=== PATIENT | male | born 1980 | race Caucasian/White ===

== ENCOUNTER 2018-10-25 08:28 | Emergency (ER) | payer SELFPAY ==
--- NOTE | 2018-10-25 08:57 | EDM.PDOC ---
<Reymundo Viramontes - Last Filed: 10/25/18 09:55> ED HPI GENERAL MEDICAL PROBLEM - General Chief Complaint: Chest Pain Stated Complaint: CHEST PAIN Time Seen by Provider: 10/25/18 08:55 - History of Present Illness INITIAL COMMENTS - FREE TEXT/NARRATIVE: Previously healthy 34 year old is seen in ER for localized chest pain in the left lateral chest that began last night while sleeping around 0300 which lasted until 0600. The pain is currently 2/10, and described as a "pressure", he states the pain has decreased significantly from when it initially began. He admits that he felt that his heart was "racing" at initial onset. He denies any radiation of pain or shortness of breath. He denies any recent trauma, heavy lifting, or overactivity of the upper extremities. He further denies any fever, chills, nausea, and vomiting. The patient does not smoke. Pt does state he drives quite a bit for work. Onset: Today Onset Date: 10/25/18 Onset Time: 03:00 Duration: Hour(s): (3 hours), Improving Location: Reports: Chest (Lateral chest wall approximately rip 3-5) Quality: Reports: Pressure Severity: Mild Improves with: Reports: None Worsens with: Reports: None (Palpation) Associated Symptoms: Reports: No Other Symptoms - Related Data Allergies Allergy/AdvReac Type Severity Reaction Status Date / Time No Known Allergies Allergy Verified 10/25/18 08:51 Home Meds: Home Meds . [No Known Home Meds] 01/06/14 [History] ED ROS GENERAL - Review of Systems Review Of Systems: See Below Constitutional: Reports: No Symptoms. Denies: Fever, Chills HEENT: Reports: No Symptoms Respiratory: Reports: No Symptoms. Denies: Shortness of Breath, Wheezing, Pleuritic Chest Pain, Cough, Sputum, Hemoptysis Cardiovascular: Reports: No Symptoms, Chest Pain (see hpi), Palpitations (see hpi). Denies: Dyspnea on Exertion, Edema, Lightheadedness, Orthopnea, Syncope Endocrine: Reports: No Symptoms GI/Abdominal: Reports: No Symptoms. Denies: Abdominal Pain, Black Stool, Diarrhea, Nausea, Vomiting : Reports: No Symptoms Musculoskeletal: Reports: No Symptoms. Denies: Neck Pain, Shoulder Pain, Arm Pain, Back Pain, Hand Pain, Joint Pain, Muscle Stiffness Skin: Reports: No Symptoms Neurological: Reports: No Symptoms. Denies: Dizziness, Headache, Syncope, Tingling Psychiatric: Reports: No Symptoms Hematologic/Lymphatic: Reports: No Symptoms Immunologic: Reports: No Symptoms ED EXAM, GENERAL - Physical Exam Exam: See Below Exam Limited By: No Limitations General Appearance: Alert, No Apparent Distress Eye Exam: Bilateral Eye: EOMI, PERRL Ears: Normal External Exam, Normal Canal, Hearing Grossly Normal Ear Exam: Bilateral Ear: Auricle Normal, Canal Normal, TM normal Nose: Normal Inspection, Normal Mucosa, No Blood Throat/Mouth: Normal Inspection, Normal Lips, Normal Teeth, Normal Gums, Normal Oropharynx, Normal Voice, No Airway Compromise Head: Atraumatic, Normocephalic Neck: Normal Inspection, Supple, Non-Tender, Full Range of Motion Respiratory/Chest: No Respiratory Distress, Lungs Clear, Normal Breath Sounds, No Accessory Muscle Use, Chest Non-Tender, Other (Pain with palpation of the apex region of the chest with musclular knots. No pain to palpation of the Costosternal or costovertebral joints.) Cardiovascular: Normal Peripheral Pulses, Regular Rate, Rhythm, No Edema, No Gallop, No JVD, No Murmur, No Rub Peripheral Pulses: 2+: Radial (L), Radial (R), Dorsalis Pedis (L), Dorsalis Pedis (R) GI/Abdominal: Normal Bowel Sounds, Soft, Non-Tender, No Organomegaly, No Distention, No Abnormal Bruit, No Mass (Male) Exam: Deferred Rectal (Males) Exam: Deferred Back Exam: Normal Inspection, Full Range of Motion. No: Decreased Range of Motion, Paraspinal Tenderness Extremities: Normal Inspection, Normal Range of Motion, Non-Tender, No Pedal Edema, Normal Capillary Refill, Pedal Edema. No: Joint Swelling, Leg Pain, Limited Range of Motion (of the left arm.) Neurological: Alert, Oriented, CN II-XII Intact, Normal Cognition, Normal Gait, Normal Reflexes, No Motor/Sensory Deficits Psychiatric: Normal Affect, Normal Mood Skin Exam: Warm, Dry, Intact, Normal Color, No Rash Lymphatic: No Adenopathy Course - Vital Signs Last Recorded V/S: Last Vital Signs Temp 36.4 C 10/25/18 08:48 Pulse 64 10/25/18 08:48 Resp 11 L 10/25/18 08:48 BP 127/87 10/25/18 08:48 Pulse Ox 96 10/25/18 08:48 - Orders/Labs/Meds Orders: Active Orders 24 hr Category Date Time Status EKG Documentation Completion [RC] STAT Care 10/25/18 08:55 Active Sodium Chloride 0.9% [Normal Saline] 1,000 ml Med 10/25/18 09:00 Active IV ASDIRECTED Medication Orders Sodium Chloride (Normal Saline) 1,000 mls @ 150 mls/hr IV ASDIRECTED SHAHRAM Last Admin: 10/25/18 09:42 Dose: 150 mls/hr Labs: Laboratory Tests 10/25/18 10/25/18 10/25/18 Range/Units 09:40 09:40 09:40 WBC 8.46 (4.23-9.07) K/mm3 RBC 5.67 (4.63-6.08) M/mm3 Hgb 17.2 (13.7-17.5) gm/L Hct 51.4 H (40.1-51.0) % MCV 90.7 (79.0-92.2) fl MCH 30.3 (25.7-32.2) pg MCHC 33.5 (32.2-35.5) g/dl RDW Std Deviation 47.5 H (35.1-43.9) fL Plt Count 225 (163-337) K/mm3 MPV 10.7 (9.4-12.3) fl Neutrophils % (Manual) 56 (40-60) % Band Neutrophils % 0 (0-10) % Lymphocytes % (Manual) 39 (20-40) % Atypical Lymphs % 0 % Monocytes % (Manual) 2 (2-10) % Eosinophils % (Manual) 3 (0.8-7.0) % Basophils % (Manual) 0 L (0.2-1.2) Platelet Estimate Adequate RBC Morph Comment Normal PT 11.0 (9.5-12.1) SECONDS INR 1.01 D-Dimer, Quantitative (0.19-0.50) mg/L Sodium 140 (136-145) mEq/L Potassium 4.5 (3.5-5.1) mEq/L Chloride 105 (98-107) mEq/L Carbon Dioxide 26 (21-32) mEq/L Anion Gap 13.5 (5-15) BUN 21 H (7-18) mg/dL Creatinine 1.1 (0.7-1.3) mg/dL Est Cr Clr Drug Dosing 108.83 mL/min Estimated GFR (MDRD) > 60 (>60) mL/min BUN/Creatinine Ratio 19.1 H (14-18) Glucose 107 H (74-106) mg/dL Calcium 9.2 (8.5-10.1) mg/dL Total Bilirubin 0.5 (0.2-1.0) mg/dL AST 22 (15-37) U/L ALT 43 (16-63) U/L Alkaline Phosphatase 67 (46-116) U/L CK-MB (CK-2) 1.1 (0-3.6) ng/ml Troponin I < 0.017 (0.00-0.056) ng/mL C-Reactive Protein < 0.2 (<1.0) mg/dL Total Protein 7.8 (6.4-8.2) g/dl Albumin 4.0 (3.4-5.0) g/dl Globulin 3.8 gm/dL Albumin/Globulin Ratio 1.1 (1-2) 10/25/18 Range/Units 09:40 WBC (4.23-9.07) K/mm3 RBC (4.63-6.08) M/mm3 Hgb (13.7-17.5) gm/L Hct (40.1-51.0) % MCV (79.0-92.2) fl MCH (25.7-32.2) pg MCHC (32.2-35.5) g/dl RDW Std Deviation (35.1-43.9) fL Plt Count (163-337) K/mm3 MPV (9.4-12.3) fl Neutrophils % (Manual) (40-60) % Band Neutrophils % (0-10) % Lymphocytes % (Manual) (20-40) % Atypical Lymphs % % Monocytes % (Manual) (2-10) % Eosinophils % (Manual) (0.8-7.0) % Basophils % (Manual) (0.2-1.2) Platelet Estimate RBC Morph Comment PT (9.5-12.1) SECONDS INR D-Dimer, Quantitative < 0.19 L (0.19-0.50) mg/L Sodium (136-145) mEq/L Potassium (3.5-5.1) mEq/L Chloride (98-107) mEq/L Carbon Dioxide (21-32) mEq/L Anion Gap (5-15) BUN (7-18) mg/dL Creatinine (0.7-1.3) mg/dL Est Cr Clr Drug Dosing mL/min Estimated GFR (MDRD) (>60) mL/min BUN/Creatinine Ratio (14-18) Glucose (74-106) mg/dL Calcium (8.5-10.1) mg/dL Total Bilirubin (0.2-1.0) mg/dL AST (15-37) U/L ALT (16-63) U/L Alkaline Phosphatase (46-116) U/L CK-MB (CK-2) (0-3.6) ng/ml Troponin I (0.00-0.056) ng/mL C-Reactive Protein (<1.0) mg/dL Total Protein (6.4-8.2) g/dl Albumin (3.4-5.0) g/dl Globulin gm/dL Albumin/Globulin Ratio (1-2) Meds: Medications Generic Name Dose Route Start Last Admin Trade Name Freq PRN Reason Stop Dose Admin Sodium Chloride 1,000 mls @ 150 mls/hr 10/25/18 09:00 10/25/18 09:42 Normal Saline IV 150 mls/hr ASDIRECTED SHAHRAM Administration Departure - Departure Disposition: Home, Self-Care 01 Clinical Impression: Non-cardiac chest pain, Chest wall pain Instructions: Nonspecific Chest Pain Referrals: PCP,None [Primary Care Provider] - Forms: ED Department Discharge, ED Return to Work/School Form Additional Instructions: Complete workup in the ED for left precordial chest pain was completed. There was no evidence of heart related illness identified. Iliac markers are normal. No evidence of blood clot in the lungs. Chest x-ray is clear with no signs of active infection. It appears that chest pain was likely chest wall in origin which means deep muscles in between the ribs went into spasm or possibly early viral infection in the chest wall around the ribs. Time will tell if it's viral you'll get the chest pain back again off and on for the next several days. Treatment is Motrin 600 mg every 6 hours as needed for chest wall pain. At this time there are no restrictions you may resume full activity and work as per normal. - My Orders Last 24 Hours: My Active Orders 10/25/18 08:55 EKG Documentation Completion [RC] STAT 10/25/18 09:00 Sodium Chloride 0.9% [Normal Saline] 1,000 ml IV ASDIRECTED - Assessment/Plan Last 24 Hours: My Active Orders 10/25/18 08:55 EKG Documentation Completion [RC] STAT 10/25/18 09:00 Sodium Chloride 0.9% [Normal Saline] 1,000 ml IV ASDIRECTED <Zafar Tinoco - Last Filed: 10/25/18 11:42> ED HPI GENERAL MEDICAL PROBLEM - General Source of Information: Reports: Patient History Limitations: Reports: No Limitations Left Chest Pain Score (Numeric/FACES): 2 Course - Orders/Labs/Meds Orders: Active Orders 24 hr Category Date Time Status EKG Documentation Completion [RC] STAT Care 10/25/18 08:55 Active Sodium Chloride 0.9% [Normal Saline] 1,000 ml Med 10/25/18 09:00 Active IV ASDIRECTED Medication Orders Sodium Chloride (Normal Saline) 1,000 mls @ 150 mls/hr IV ASDIRECTED SHAHRAM Last Admin: 10/25/18 09:42 Dose: 150 mls/hr Labs: Laboratory Tests 10/25/18 10/25/18 10/25/18 Range/Units 09:40 09:40 09:40 WBC 8.46 (4.23-9.07) K/mm3 RBC 5.67 (4.63-6.08) M/mm3 Hgb 17.2 (13.7-17.5) gm/L Hct 51.4 H (40.1-51.0) % MCV 90.7 (79.0-92.2) fl MCH 30.3 (25.7-32.2) pg MCHC 33.5 (32.2-35.5) g/dl RDW Std Deviation 47.5 H (35.1-43.9) fL Plt Count 225 (163-337) K/mm3 MPV 10.7 (9.4-12.3) fl Neutrophils % (Manual) 56 (40-60) % Band Neutrophils % 0 (0-10) % Lymphocytes % (Manual) 39 (20-40) % Atypical Lymphs % 0 % Monocytes % (Manual) 2 (2-10) % Eosinophils % (Manual) 3 (0.8-7.0) % Basophils % (Manual) 0 L (0.2-1.2) Platelet Estimate Adequate RBC Morph Comment Normal PT 11.0 (9.5-12.1) SECONDS INR 1.01 D-Dimer, Quantitative (0.19-0.50) mg/L Sodium 140 (136-145) mEq/L Potassium 4.5 (3.5-5.1) mEq/L Chloride 105 (98-107) mEq/L Carbon Dioxide 26 (21-32) mEq/L Anion Gap 13.5 (5-15) BUN 21 H (7-18) mg/dL Creatinine 1.1 (0.7-1.3) mg/dL Est Cr Clr Drug Dosing 108.83 mL/min Estimated GFR (MDRD) > 60 (>60) mL/min BUN/Creatinine Ratio 19.1 H (14-18) Glucose 107 H (74-106) mg/dL Calcium 9.2 (8.5-10.1) mg/dL Total Bilirubin 0.5 (0.2-1.0) mg/dL AST 22 (15-37) U/L ALT 43 (16-63) U/L Alkaline Phosphatase 67 (46-116) U/L CK-MB (CK-2) 1.1 (0-3.6) ng/ml Troponin I < 0.017 (0.00-0.056) ng/mL C-Reactive Protein < 0.2 (<1.0) mg/dL Total Protein 7.8 (6.4-8.2) g/dl Albumin 4.0 (3.4-5.0) g/dl Globulin 3.8 gm/dL Albumin/Globulin Ratio 1.1 (1-2) 10/25/18 Range/Units 09:40 WBC (4.23-9.07) K/mm3 RBC (4.63-6.08) M/mm3 Hgb (13.7-17.5) gm/L Hct (40.1-51.0) % MCV (79.0-92.2) fl MCH (25.7-32.2) pg MCHC (32.2-35.5) g/dl RDW Std Deviation (35.1-43.9) fL Plt Count (163-337) K/mm3 MPV (9.4-12.3) fl Neutrophils % (Manual) (40-60) % Band Neutrophils % (0-10) % Lymphocytes % (Manual) (20-40) % Atypical Lymphs % % Monocytes % (Manual) (2-10) % Eosinophils % (Manual) (0.8-7.0) % Basophils % (Manual) (0.2-1.2) Platelet Estimate RBC Morph Comment PT (9.5-12.1) SECONDS INR D-Dimer, Quantitative < 0.19 L (0.19-0.50) mg/L Sodium (136-145) mEq/L Potassium (3.5-5.1) mEq/L Chloride (98-107) mEq/L Carbon Dioxide (21-32) mEq/L Anion Gap (5-15) BUN (7-18) mg/dL Creatinine (0.7-1.3) mg/dL Est Cr Clr Drug Dosing mL/min Estimated GFR (MDRD) (>60) mL/min BUN/Creatinine Ratio (14-18) Glucose (74-106) mg/dL Calcium (8.5-10.1) mg/dL Total Bilirubin (0.2-1.0) mg/dL AST (15-37) U/L ALT (16-63) U/L Alkaline Phosphatase (46-116) U/L CK-MB (CK-2) (0-3.6) ng/ml Troponin I (0.00-0.056) ng/mL C-Reactive Protein (<1.0) mg/dL Total Protein (6.4-8.2) g/dl Albumin (3.4-5.0) g/dl Globulin gm/dL Albumin/Globulin Ratio (1-2) Meds: Medications Generic Name Dose Route Start Last Admin Trade Name Freq PRN Reason Stop Dose Admin Sodium Chloride 1,000 mls @ 150 mls/hr 10/25/18 09:00 10/25/18 09:42 Normal Saline IV 150 mls/hr ASDIRECTED SHAHRAM Administration - Radiology Interpretation Free Text/Narrative:: 37-year-old male presents the ED with transient left precordial chest pain. He states he woke up about 0300 hrs. this morning with a feeling of his heart racing. He then would became aware of a left precordial sharp stabbing chest discomfort that lasted from about 0 300 to 0600 hrs. and then dissipated. He states he has not been to the gym for the last week. He has no tenderness of the chest wall on examination. It reveals mildly hyperinflated lung castro but they are clear without any signs of infection. Pain appears to be noncardiac in origin. Triage nurse did his ECG which showed sinus rhythm at 75/m with a diffuse early repolarization pattern but no signs of ischemia. Plan routine labs to be performed including d-dimer and cardiac markers - Re-Assessments/Exams Free Text/Narrative Re-Assessment/Exam: 10/25/18 11:34Labs are back. White count is 8.46 with 56% neutrophils and no band cells reported. Hemoglobin is 17.2 with hematocrit of 51.4 indicating some degree of hemoconcentration. Platelet count is 225,000. PT is 11.0 with an INR of 1.01. D-dimer is less than 0.19. Sodium 140 with a potassium of 4.5. Chloride 105 with a bicarbonate 26. And a gap is 13.5. BUNs 21 with a creatinine of 1.1. GFR remains greater than 60.. Glucose is 107. Calcium normal at 9.2. Liver function is normal. Troponin I is less than 0.017. CK-MB fraction is 1.1 C-reactive protein is less than 0.2. 10/25/18 11:41 patient reassured of the findings. Easy the got chest wall pain intercostal muscle spasm versus under viral infection of the pleura. He is not showing any signs of fever. Lying depleted advise the needs about 2-3 bottles a Gatorade today to rehydrate him. Note given to excuse him from the workplace a day. He will use Motrin 600 mg every 6 hours if needed for recurrence of pain. Pain which patient reassured no evidence of heart related illness and no blood clot in the lung etc. Departure - Departure Time of Disposition: 11:34 Condition: Fair - My Orders Last 24 Hours: My Active Orders 10/25/18 08:55 EKG Documentation Completion [RC] STAT 10/25/18 09:00 Sodium Chloride 0.9% [Normal Saline] 1,000 ml IV ASDIRECTED - Assessment/Plan Last 24 Hours: My Active Orders 10/25/18 08:55 EKG Documentation Completion [RC] STAT 10/25/18 09:00 Sodium Chloride 0.9% [Normal Saline] 1,000 ml IV ASDIRECTED
[2018-10-25] MEDS ORDERED: Sodium Chloride 0.9% 1,000 ML IV SCH (09:00)
--- NOTE | 2018-10-25 10:02 | CR ---
Chest: Portable view of the chest was obtained. Comparison: Prior chest x-ray of 11/16/10. Heart size and mediastinum are normal. Lungs are clear. Bony structures are unremarkable. Impression: 1. Nothing acute is seen on portable chest x-ray. Diagnostic code #1
== END 2018-10-25 11:56 | disposition home or self-care (01) ==
LOC: JD.ED 08:28
DX: R07.89 Other chest pain (principal)
CPT/HCPCS: 36415; 71045; 80053; 82553; 84484; 85007; 85027; 85379; 85610; 86140; 93005; 96360; 96361; 99285; J7040; 93010; 99284

== ENCOUNTER 2021-03-22 22:36 | Emergency (ER) | payer SELFPAY ==
[2021-03-22] MEDS ORDERED: Lactated Ringers 1,000 ML IV SCH (22:45)
[2021-03-22] MEDS ORDERED: Sodium Chloride 0.9% 10 ML Syringe FLUSH PRN (22:45)
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
[2021-03-23] MEDS ORDERED: Iopamidol 612 MG/ML 100 ML Bottle IVPUSH ONE (01:51)
[2021-03-23] MEDS ORDERED: Sodium Chloride 0.9% 10 ML Syringe FLUSH SCH (02:00)
[2021-03-23] MEDS ORDERED: Sodium Chloride 0.9% 100 ML IV SCH (02:00)
--- NOTE | 2021-03-23 13:59 | CT ---
CT thoracic spine Technique: Multiple axial sections through the thoracic spine were obtained. Reconstructed coronal and sagittal images were obtained. Comparison: No prior thoracic spine imaging is available. Findings: Slight degenerative change is seen within the cervical spine. Vertebral body heights are maintained within the thoracic spine. Minimal scattered disc space narrowing is seen within the thoracic spine. Disc space narrowing is also noted within the upper visualized lumbar spine. No bony central or bony neural foraminal stenosis is seen. No acute fracture or subluxation is seen. Impression: 1. Mild degenerative change as noted above. 2. Nothing acute is appreciated on CT study of the thoracic spine. Diagnostic code #2 I agree with preliminary report from [facility], finalized on 03/23/21, 1:06 AM CDT, code 1
--- NOTE | 2021-03-23 13:59 | CT ---
Head CT Technique: Multiple axial sections through the brain were obtained. Intravenous contrast was not utilized. Reconstructed coronal and sagittal images were obtained. Comparison: No prior intracranial imaging is available. Findings: Ventricles along with basal cisterns and sulci over the convexities are within normal limits for the patient's age. No abnormal parenchymal densities are seen. No evidence of intracranial hemorrhage is seen. No midline shift or mass-effect is seen. Bone window settings were reviewed. Visualized mastoid sinuses are clear. Minimal mucosal thickening is seen within the maxillary, ethmoid and frontal sinuses. No air-fluid levels are seen. No acute calvarial abnormality is appreciated. Impression: 1. Slight sinus findings which are most likely chronic. 2. No acute intracranial abnormality is seen. Diagnostic code #2 I agree with preliminary report from [facility], finalized on 03/23/21, 1:05 AM CDT, code 1
--- NOTE | 2021-03-23 14:00 | CT ---
CT cervical spine Technique: Multiple axial sections through the cervical spine were obtained. Intravenous contrast was not utilized. Reconstructed coronal and sagittal images were obtained. Comparison: No prior cervical spine imaging is available. Slight anterior spurring is noted at C5-6 and more prominently at C6-7. Slight posterior osteophytes are noted at C6-7. Vertebral body heights are maintained. No bony central or bony neural foraminal stenosis is seen. Slight scoliosis is noted on the AP reconstructed images. No acute fracture or subluxation is seen. Impression: 1. Mild degenerative change as noted above. 2. No acute fracture or subluxation is seen. Diagnostic code #2 I agree with preliminary report from [facility], finalized on 03/23/21, 1:08 AM CDT, code 1
--- NOTE | 2021-03-23 14:03 | CT ---
CT abdomen and pelvis Technique: Multiple axial sections were obtained from above the dome of the diaphragm inferiorly through the pubic symphysis. Intravenous contrast was utilized. No oral contrast has been given. Delayed images were obtained through the abdomen and pelvis. Reconstructed coronal and sagittal images were also obtained. Comparison: No prior abdominal imaging is available. Findings: Visualized lung bases show nothing acute. Liver contains no focal parenchymal abnormality. Spleen size is normal. Pancreas is within normal limits. Adrenal glands show no nodule. Gallbladder contains no calcified gallstones. Kidneys show symmetric contrast enhancement. No hydronephrosis or mass is seen within either kidney. Abdominal aorta shows no aneurysm. No retroperitoneal adenopathy or mesenteric abnormalities are seen. Appendix is seen which is normal. No pelvic mass or adenopathy is seen. Bladder is dilated presumably due to non-voiding. Delayed images show contrast excretion from both kidneys. No contrast is seen within the bladder raising the possibility of dehydration. Bone window settings were reviewed which show disc space narrowing most prominent at L1-2 and L2-3. Lesser degenerative change scattered within other portions of the spine. Impression: 1. Findings as noted above which are chronic. 2. Nothing acute is identified on CT study of the abdomen and pelvis. Diagnostic code #2 I agree with preliminary report from [facility], finalized on 03/23/21, 1:11 AM CDT, code 1
== END 2021-03-23 00:47 | disposition home or self-care (01) ==
LOC: JD.ED 22:36
DX: S16.1XXA Strain of muscle, fascia and tendon at neck level, initial encounter (principal); S39.012A Strain of muscle, fascia and tendon of lower back, initial encounter; R10.2 Pelvic and perineal pain; Z72.0 Tobacco use; V49.10XA Passenger injured in collision with unspecified motor vehicles in nontraffic accident, initial encounter; Y92.410 Unspecified street and highway as the place of occurrence of the external cause
CPT/HCPCS: 36415; 70450; 70450-26; 72125; 72125-26; 72128; 72128-26; 74177; 74177-26; 80053; 80306; 80307; 85025; 99284; 99285-25